=== PATIENT | male | born 1950 | race African-American/Black ===

== ENCOUNTER 2016-10-08 08:28 | Emergency (ER) | payer OTHER ==
--- NOTE | 2016-10-08 09:14 | ED EKG INTERP ---
EKG Interpretation - EKG Time of EKG reading by physician:: 08:40 EKG Read and Signed by:: Zeeshan Saenz EKG Interpretation (*Must complete 3 of following elements*): Abnormal Rate: 69 Rhythm: normal sinus rhythm with sinus arrhythmia Comments: voltage criteria for left ventricular hypertrophy Attestation - Scribe Verification/Attestation Scribe:: Cait Chavez Acting as Scribe for:: Zeeshan Saenz Scribe documention review:: This chart was documented by a scribe and accurately reflects the service the provider performed and the decisions made by the provider.
--- NOTE | 2016-10-08 09:15 | EKG Report ---
Test Performed on : 10/08/2016 08:40:57 AM Test Reason : cp/anxiety Blood Pressure : / mmHG Vent. Rate : 069 BPM Atrial Rate : 069 BPM P-R Int : 142 ms QRS Dur : 082 ms QT Int : 400 ms P-R-T Axes : 076 055 -21 degrees QTc Int : 428 ms Normal sinus rhythm. with sinus arrhythmia. Voltage criteria for left ventricular hypertrophy T wave abnormality, consider inferior ischemia Abnormal ECG When compared with ECG of 05-FEB-2015 00:12, T wave inversion now evident in Inferior leads Unconfirmed Result
--- NOTE | 2016-10-08 10:18 | PROVIDER DOCUMENTATION ---
HPI-General Adult - General Source: patient - History of Present Illness -Gen Adult Nature of Presenting Problems: Pt is 66 y/o M presents to the ED with anxiety. Pt states he feels like he is going to have a panic attack. Pt states was at work and started feeling hot and felt faint. Pt denies syncope or LOC. Pt states just feeling tired all the time. Pt states recently talking to about and it has him stressed. Location of Pain/Injury: reports: generalized Pain Radiation: reports: no radiation Quality of Pain: reports: aching Severity: reports: mild Onset/Duration: reports: unsure Timing: reports: still present, intermittent Context/Activities at Onset: reports: light activity Modifying Factors: improves with: nothing Associated Symptoms: reports: anxiety. denies: arm pain, back/neck pain, chest pain, constipation, cough, diaphoresis, diarrhea, dizziness, EENT symptoms, fatigue, fever/chills, genitourinary problems, headaches, heartburn, joint pain , loss of appetite, malaise, muscle aches, sinus congestion/drainage, nausea, rash, seizure, shortness of breath, sensory/motor loss, pain with inspiration, swelling/mass in abdomen, syncope, vomiting, weakness, trouble walking Similar Symptoms Previously?: Yes Recently seen or treated by another doctor?: No <Cait Chavez - Last Filed: 10/08/16 11:27> <Zeeshan Saenz - Last Filed: 10/08/16 11:37> - General Chief Complaint: Anxiety Stated Complaint: ANXIETY/CHEST PAIN Time Seen by Provider: 10/08/16 10:10 Allergies/Adverse Reactions: Patient Allergies Allergy/AdvReac Type Severity Reaction Status Date / Time acetaminophen [From Lortab] Allergy ITCHING Verified 02/26/16 18:18 hydrocodone bitartrate * Allergy ITCHING Verified 02/26/16 18:18 [From Lortab] morphine Allergy DIZZINESS Verified 02/26/16 18:18 Home Medications: Home Medication List Medication Instructions Recorded Confirmed Last Taken Type Methocarbamol [Robaxin-750] 750 mg PO TID PRN PRN #30 tablet 08/07/15 02/26/16 Rx Orphenadrine [Norflex] 100 mg PO BID PRN #20 tablet 02/26/16 Unknown Rx Oxycodone/APAP 5 mg/325 mg 1 each PO Q4H PRN PRN #10 tablet 02/26/16 Unknown Rx [Percocet-5] Escitalopram [Lexapro] 10 mg PO DAILY #30 tablet 10/08/16 Unknown Rx Review of Systems - Adult - REVIEW OF SYSTEMS - ADULT Constitutional: denies: chills, fever Eyes: denies: blurred vision, double vision Ears, Nose, Mouth & Throat: denies: ear pain, nose pain, throat pain Cardiovascular: denies: chest pain, heart murmur, irregular heart rate Respiratory: denies: cough, shortness of breath, wheezing Gastrointestinal: denies: abdominal pain, diarrhea, nausea, vomiting Genitourinary: denies: dysuria, hematuria Musculoskeletal: denies: bone pain, joint pain, neck pain Integumentary: denies: hives, itching Neurological: denies: dizziness/vertigo, headache/migraines Psychiatric: reports: anxiety. denies: depression, suicidal thoughts Endocrine: reports: no symptoms reported Hematologic/Lymphatic: reports: no symptoms reported Allergic/Immunologic: reports: no symptoms reported All Other Systems: Reviewed and Negative <Cait Chavez - Last Filed: 10/08/16 11:27> Past History - Adult - PAST MEDICAL HISTORY-ADULT Review of Records: reports: Nursing Assessment Review, Medications Reviewed, Social history reviewed & non-contributory. Major Childhood Illnesses: reports: denies history Cardiovascular: reports: HTN, hyperlipidemia, [place] (With stint placement) Respiratory: reports: denies history Gastrointestinal: reports: denies history Obstetrical/Gynecological: reports: denies history Genitourinary: reports: denies history, erectile dysfunction Musculoskeletal: reports: denies history Neurological: reports: CVA Endocrine/Immune: reports: denies history Other Conditions: reports: denies history - PRIOR SURGERIES/PROCEDURES Surgical/Procedure History: reports: cholecystectomy, cardiac stent, orthopedic (extremity) (bilateral shoulder ), other (Hemorroids and Bilat shoulder) - PRIOR HOSPITALIZATIONS Prior Hospitalizations: reports: none - IMMUNIZATION STATUS Childhood Immunizations: See Nurse Assessment Flu Vaccine: See Nurse Assessment - FAMILY HISTORY Family History: reviewed, not pertinent - SOCIAL HISTORY Smoking: denies Substance Use: denies Living Situation: family <Cait Chavez - Last Filed: 10/08/16 11:27> Physical Exam-General - PHYSICAL EXAM-ADULT Initial Vital Signs Reviewed: Yes - CONSTITUTIONAL General Appearance: appears well, alert, no apparent distress, anxious - EYES Eyes: PERRL/EOMI, pink conjunctivae, fundi clear, no AV nicking - HEAD, EARS, NOSE, MOUTH & THROAT HENMT: normocephalic/atraumatic, moist mucous membranes, normal ENT inspection, TMs normal, pharynx normal - NECK Neck: non-tender, full range of motion, supple, normal inspection - RESPIRATORY Respiratory: chest non-tender, lungs clear, normal breath sounds, no pleuratic chest pain, no respiratory distress, no accessory muscle use - CARDIOVASCULAR Cardiovascular: normal peripheral pulses, regular rate, rhythm, no edema, no gallop, no JVD, no murmur - GASTROINTESTINAL (ABDOMEN) Abdominal Exam: normal bowel sounds, non tender, soft, no organomegaly, no pulsatile mass - LYMPHATIC Lymphatic: no adenopathy - MUSCULOSKELETAL Back Exam: normal inspection, no CVA tenderness, no vertebral tenderness Extremity: normal range of motion, non-tender, normal gait, normal inspection - SKIN Integumentary: normal color, normal turgor, warm/dry - NEUROLOGIC Neurologic: therapeutic radiologist II-XII nml as tested, grossly normal, no motor/sensory deficits - PSYCHIATRIC Psych/Mental Status: normal mood/affect, normal thought content, normal thought process, oriented x 3 <Cait Chavez - Last Filed: 10/08/16 11:27> Progress - PLAN OF CARE/RESULTS Progress/Plan/Lab Results: Orders Category Date Time Status EKG [EKG] Stat Ther 10/08/16 08:42 Draft Vital Signs - 24 hr 10/08/16 08:35 Temperature 98.4 F Pulse Rate 84 Respiratory 18 Rate Blood Pressure 133/84 O2 Sat by Pulse 97 Oximetry <Cait Chavez - Last Filed: 10/08/16 11:27> Departure <Cait Chavez - Last Filed: 10/08/16 11:27> - Departure Time of Disposition Order: 11:36 Certified Medical Emergency: Emergent <Zeeshan Saenz - Last Filed: 10/08/16 11:37> - Departure DIAGNOSIS: Depression (emotion) Qualifiers: Depression Type: reactive depression Qualified Code(s): F32.9 - Major depressive disorder, single episode, unspecified Disposition: HOME 01 Condition: Stable Additional Instructions: ED Follow Up Instructions: You have been treated by a care provider in the Emergency Department. These instructions are being provided to you so you can have an understanding of how to care for yourself upon discharge. Upon discharge from the Emergency Department, you are responsible for making arrangements for follow-up care by a physician of your choice. Take all prescribed medications as directed. Return to the Emergency Department immediately for any new or worsening symptoms. You may call the Physician Referral phone number at [phone] to obtain a list of Physicians who are taking new patients. Prescriptions: Escitalopram [Lexapro] 10 mg PO DAILY #30 tablet Referrals: Zeeshan Saenz MD [Primary Care Provider] - Attestation - Scribe Verification/Attestation Scribe:: Cait Chavez Acting as Scribe for:: Zeeshan Saenz Scribe documention review:: This chart was documented by a scribe and accurately reflects the service the provider performed and the decisions made by the provider. <Cait Chavez - Last Filed: 10/08/16 11:27> Physician Attestation
[2016-10-08 11:54] VITALS: BP 133/88
== END 2016-10-08 12:40 | disposition home or self-care (01) ==
LOC: P.ED 08:28
DX: F32.9 Major depressive disorder, single episode, unspecified (principal); I10 Essential (primary) hypertension; E78.5 Hyperlipidemia, unspecified; R94.31 Abnormal electrocardiogram [ECG] [EKG]; I25.2 Old myocardial infarction; Z86.73 Personal history of transient ischemic attack (TIA), and cerebral infarction without residual deficits; Z95.5 Presence of coronary angioplasty implant and graft
CPT/HCPCS: 93005; 99282

== ENCOUNTER 2019-05-07 03:00 | Inpatient (IN) ==
--- NOTE | 2019-04-30 08:33 | EKG Report ---
Test Performed on : 04/30/2019 08:24:21 AM Test Reason : PAT Blood Pressure : / mmHG Vent. Rate : 067 BPM Atrial Rate : 067 BPM P-R Int : 152 ms QRS Dur : 084 ms QT Int : 374 ms P-R-T Axes : 064 019 -12 degrees QTc Int : 395 ms Normal sinus rhythm. with sinus arrhythmia. Minimal voltage criteria for LVH, may be normal variant Abnormal ECG When compared with ECG of 02-NOV-2016 04:54, Nonspecific T wave abnormality now evident in Anterolateral leads Confirmed by Fifi ASHLEY, Aaron Hobbs ([id number]) on 05/01/2019 8:19:14 PM
[2019-04-30 09:19] LABS: URINE SOURCE CLEAN CATCH
[2019-04-30 09:29] LABS: BASO# 0.01 X1000 (0.0-0.2); BASO% 0.2 % (0.0-0.8); EOS# 0.05 X1000 (0.0-0.7); HEMOGLOBIN 12.5 g/dL (14.0-18.0); IMM GRAN# 0.02 X1000 (0.0-0.04); IMM GRAN% 0.4 % (0.0-0.5); LYMPH# 1.67 X1000 (1.2-3.4); LYMPH% 34.9 % (20.5-51.1); MCH 28.2 PG (27-31); MCHC 32.1 g/dL (33-37); MONO# 0.43 X1000 (0.11-0.59); MPV 10.8 FL (7.4-10.4); NEUT# 2.61 X1000 (1.4-6.5); NEUT% 54.5 % (42.2-75.2); PLT 188 X1000 (130-400); RBC 4.43 XMIL (4.7-6.1); RDW 12.5 % (11.5-14.5); WBC 4.79 X1000 (4.8-10.8)
[2019-04-30 09:30] LABS: BILIRUBIN URINE NEGATIVE (NEGATIVE); BLOOD URINE NEGATIVE (NEGATIVE); COLOR YELLOW; GLUCOSE URINE NEGATIVE (NEGATIVE); KETONE URINE NEGATIVE (NEGATIVE); LEUKOCYTES URINE NEGATIVE (NEGATIVE); NITRITE URINE NEGATIVE (NEGATIVE); PH URINE 6.5; PROTEIN URINE NEGATIVE (NEGATIVE); SP GRAVITY URINE 1.021; TURBIDITY URINE CLEAR (CLEAR); UROBILINOGEN URINE 3 mg/dL (NORMAL)
[2019-04-30 09:31] LABS: UR EPITHELIAL CELLS <10 /HPF (<10); URINE BACTERIA NEGATIVE /HPF; URINE RBC <10 /HPF (<10); URINE WBC <10 /HPF (<10)
[2019-04-30 09:54] LABS: INR 1.04; PROTIME 13.7 Seconds (11.0-16.0)
[2019-04-30 09:55] LABS: HEMOGLOBIN A1C 5.1 % (4.8-6.0); PTT 25.7 Seconds (22.3-41.8)
[2019-04-30 10:09] LABS: AGAP 12; BUN 17 mg/dL (8-22); CALCIUM 9.1 mg/dL (8.8-10.2); CHLORIDE 105 mmol/L (98-107); COSMO 284; CREATININE 1.3 mg/dL (0.7-1.2); ESTIMATED GFR > 60; GLUCOSE 88 mg/dL (70-104); POTASSIUM 4.1 mmol/L (3.5-5.1); SODIUM 142 mmol/L (136-145); TCO2 25 mmol/L (25-35)
[2019-05-07] MEDS ORDERED: COLACE ONE (09:18)
[2019-05-07] MEDS ORDERED: REGLAN ONE (09:18)
[2019-05-07] MEDS ORDERED: PEPCID ONE (09:18)
[2019-05-07] MEDS ORDERED: CELEBREX ONE (09:19)
[2019-05-07] MEDS ORDERED: LR 1,000 ML ONE (09:19)
[2019-05-07] MEDS ORDERED: LYRICA ONE (09:19)
[2019-05-07] MEDS ORDERED: KEFZOL 1 GM/D5W 2 GM/100 ML IVPB ONE (09:19)
[2019-05-07] MEDS ORDERED: NORCURON ONE (09:22)
[2019-05-07] MEDS ORDERED: QUELICIN (DOSE) ONE (09:22)
[2019-05-07] MEDS ORDERED: SODIUM CHLORIDE 0.9% 10 ML ONE (09:22)
[2019-05-07] MEDS ORDERED: XYLOCAINE-MPF 2% ONE (09:23)
[2019-05-07] MEDS ORDERED: FENTANYL ONE (09:25)
[2019-05-07] MEDS ORDERED: DIPRIVAN 1% ONE (09:25)
[2019-05-07] MEDS ORDERED: DURAMORPH ONE (10:50)
[2019-05-07] MEDS ORDERED: TORADOL ONE (10:50)
[2019-05-07] MEDS ORDERED: SODIUM CHLORIDE 0.9% ONE (10:51)
[2019-05-07] MEDS ORDERED: SENSORCAINE 0.25%/EPI 1:200,000 ONE (10:51)
[2019-05-07] MEDS ORDERED: CYKLOKAPRON 1,000 MG/NS 1,000 MG/100 ML IVPB ONE (10:51)
[2019-05-07] MEDS ORDERED: EXPAREL 1.3% ONE (10:51)
[2019-05-07] MEDS ORDERED: VALIUM ONE (11:03)
[2019-05-07] MEDS ORDERED: NEO-SYNEPHRINE ONE ×2 (11:29)
[2019-05-07] MEDS ORDERED: ROBINUL ONE ×2 (11:46)
[2019-05-07] MEDS ORDERED: LABETALOL (DOSE) ONE (12:05)
[2019-05-07 12:09] LABS: URINE SOURCE CATH
[2019-05-07 12:13] LABS: BILIRUBIN URINE NEGATIVE (NEGATIVE); BLOOD URINE NEGATIVE (NEGATIVE); COLOR YELLOW; GLUCOSE URINE NEGATIVE (NEGATIVE); KETONE URINE NEGATIVE (NEGATIVE); LEUKOCYTES URINE NEGATIVE (NEGATIVE); NITRITE URINE NEGATIVE (NEGATIVE); PH URINE 6.5; PROTEIN URINE NEGATIVE (NEGATIVE); SP GRAVITY URINE 1.018; TURBIDITY URINE CLEAR (CLEAR); UR EPITHELIAL CELLS <10 /HPF (<10); URINE BACTERIA NEGATIVE /HPF; URINE RBC <10 /HPF (<10); URINE WBC <10 /HPF (<10); UROBILINOGEN URINE NORMAL (NORMAL)
[2019-05-07] MEDS ORDERED: NS 1,000 ML ONE (13:25)
[2019-05-07] MEDS: DILAUDID ONE ×3 (13:25→23:46)
[2019-05-07] MEDS: OXY IR ONE ×2 (13:59→23:46)
--- NOTE | 2019-05-07 14:04 | Diag Imaging Result Doc PS360 ---
SHOULDER 1 VIEW LEFT - 05/07/2019 INDICATION: L TSA TECHNIQUE: COMPARISON: None FINDINGS: There has been left total shoulder arthroplasty. Alignment is anatomic. No hardware fracture or loosening. IMPRESSION: No complication. Electronically signed by Josue Tai 05/07/2019 2:01 PM
[2019-05-07] MEDS ORDERED: DECADRON ONE (14:29)
[2019-05-07] MEDS ORDERED: OFIRMEV 1000 MG/ISOTONIC SOLN 1,000 MG/100 ML BOTTLE ONE (14:29)
[2019-05-07] MEDS ORDERED: SALINE LOCK IV FLUID XX ONE (15:21)
[2019-05-07] MEDS ORDERED: MORPHINE IV PRN ×3 (15:30)
[2019-05-07] MEDS: NS 1,000 ML IV SCH (15:30)
[2019-05-07] MEDS ORDERED: DILAUDID IV PRN ×3 (16:39→16:45)
[2019-05-07] MEDS ORDERED: ROBAXIN PO PRN (17:01)
[2019-05-07] MEDS ORDERED: CYKLOKAPRON 1,000 MG in NS 100 ML IV ONE (17:30)
[2019-05-07] MEDS: OXY IR PO PRN ×2 (17:34→22:44)
[2019-05-07] MEDS: KEFZOL 2 GM/D5W 2 GM/50 ML IVPB IV SCH (20:12)
[2019-05-07] MEDS: COLACE PO SCH (20:17)
[2019-05-07] MEDS: ZANAFLEX PO SCH (20:17)
[2019-05-07] MEDS: BENADRYL PO PRN (22:42)
--- NOTE | 2019-05-07 22:44 | OPERATIVE NOTE ---
PROCEDURE DATE: 05/07/2019 PREOPERATIVE DIAGNOSIS: Left glenohumeral arthritis with recurrent chronic rotator cuff tear. POSTOPERATIVE DIAGNOSIS: Left glenohumeral arthritis with recurrent chronic rotator cuff tear. PROCEDURES: Left reverse shoulder arthroplasty with DePuy Delta Xtend size 12 Press-fit stem, 42 + 3 humeral cup, a 42 +2 mm lateralized eccentric Glenosphere and a standard metaglene. SURGEON: Shant Issa MD BUSINESS QUALITY ASSURANCE ANALYST: RUBY Adames who is necessary for proper positioning, retraction and manipulation of the extremity during the case. SECOND CHIEF CREDIT OFFICER: RUBY Gifford and Junior Reveles RN. ANESTHESIA: General. INTRAVENOUS FLUIDS: 1500 mL of lactated Ringer's. ESTIMATED BLOOD LOSS: 150 mL. COMPLICATIONS: None. INDICATION: The patient is a 69-year-old male who has chronic history of worsening pain and discomfort in his left shoulder. He has undergone previous open rotator cuff repair. He has had some worsening symptoms which have progressed to affect his activities of daily living. Given the patient's continued pain and discomfort, recommendations to proceed with left reverse shoulder arthroplasty was offered. Risks and benefits of surgery were explained, including the risks of anesthesia, , bleeding, infection, failure to relieve pain, postoperative stiffness, nerve injury, blood clots, and other imponderables. All questions were answered, and patient and family wished to proceed with surgery. DETAILS OF OPERATION: The patient was taken to the operating room and placed supine on the operating table. Once adequate anesthesia was obtained, patient was placed in semi-[place]- chair position. The left shoulder was subsequently prepped and draped in usual sterile fashion. A standard deltopectoral incision was made with a skin knife. Hemostasis was obtained using electrocautery. The deltopectoral interval was then developed. Retractors were then placed. The clavipectoral fascia was elevated as well. Stay sutures were then placed in the subscapularis tendon, and it was released approximately 1 cm anterior to medial insertion. After this had been performed, the head was then dislocated anteriorly. The starting reamer was then passed. The intramedullary canal was followed by sequential reaming up to a size 12. The proximal humeral cutting block was then pinned in position approximately 15 degrees of retroversion. The humeral head was then resected. Attention was then turned to the glenoid where circumferential dissection was performed with a deep knife. A guide was placed in position, and guide pin was then placed. Reaming was then conducted. Central hole was then dilated. The wound was copiously irrigated with pulsatile lavage. A standard metaglene was then impacted in position. Three locking screws and 1 nonlocking screw was placed. It had good fixation. The wound was copiously once again. A 42 +2 mm lateralize eccentric Glenosphere was then placed with the eccentricity placed inferiorly. Attention was then turned to the proximal humerus where intramedullary guide was placed in position. The proximal humerus was reamed. Intramedullary canal was copiously irrigated. A size 12 Delta Xtend press-fit humeral stem was then impacted and had good fit. Trial cup was performed + 3 and had excellent stability and range of motion. The trial cup was removed. The wound was copiously irrigated once again. A 42 +3 humeral cup was then placed. The shoulder was reduced, carried through range of motion. It had excellent stability and range of motion. Exparel was placed deep to the soft tissue as well as subcutaneous tissue. The wound was copiously irrigated once again. A #2 FiberWire was then used to repair the subscapularis tendon. The wound was copiously irrigated once again. 2-0 Vicryl was then used to close subcutaneous tissue followed by running 2-0 Prolene. Benzoin and Steri-Strips were applied. Adaptic, sterile 4 x 4, ABD pad, and tape on the left shoulder. The patient tolerated the procedure well with no complications and transferred to the recovery room in stable condition. cc: Shant Issa MD
[2019-05-08] MEDS: PERIDEX MT SCH ×3 (00:59→21:13)
[2019-05-08] MEDS: KEFZOL 2 GM/D5W 2 GM/50 ML IVPB IV SCH (04:31)
[2019-05-08] MEDS: ZANAFLEX PO SCH ×3 (04:32→21:13)
[2019-05-08] MEDS: BENADRYL PO PRN (04:49)
[2019-05-08 09:05] LABS: HEMATOCRIT 34.6 % (42.0-52.0); HEMOGLOBIN 10.5 g/dL (14.0-18.0)
--- NOTE | 2019-05-08 09:39 | Diag Imaging Result Doc PS360 ---
EXAM: CHEST-1 VIEW 05/08/2019 HISTORY: rehab TECHNIQUE: AP portable upright at 0925 COMMENT: There are platelike opacities in both lung bases consistent with atelectasis. The inspiration is less optimal than on 11/02/2016. There has been a total shoulder arthroplasty on the left since the previous study. IMPRESSION: Bibasilar atelectasis. Electronically signed by Brent Judd 05/08/2019 9:36 AM
[2019-05-08] MEDS: COLACE PO SCH ×2 (09:43→21:13)
[2019-05-08] MEDS: OXY IR PO PRN ×3 (09:43→19:25)
[2019-05-08] MEDS: LEXAPRO PO SCH (09:43)
[2019-05-08 09:52] LABS: CALCIUM 8.3 mg/dL (8.8-10.2)
[2019-05-08] MEDS ORDERED: KAYEXALATE PO ONE (10:12)
[2019-05-08] MEDS ORDERED: TUMS PO ONE (12:05)
[2019-05-08] MEDS: ZOFRAN PO PRN (12:10)
--- NOTE | 2019-05-08 12:57 | ORTHOPAEDICS PROGRESS NOTE ---
DATE: 05/08/2019 SUBJECTIVE: The patient is a pleasant, 69-year-old male who is 1 day status post left reverse total shoulder arthroplasty. He is currently resting comfortably. OBJECTIVE: On physical examination, the patient's left upper extremity dressing is intact. Able to flex all his fingers. Good capillary refill distally.Vital signs: Stable. Labs are pending. IMPRESSION: Postoperative day #1 status post left reverse total shoulder arthroplasty. PLAN: At this point, change his dressing, and begin mobilization physical therapy. Cpr Ambulance Driver have been consulted for discharge planning. cc: Shant Issa MD
[2019-05-08] MEDS ORDERED: NS 1,000 ML IV ONE (17:30)
[2019-05-08] MEDS: NS 1,000 ML IV SCH ×2 (18:20→21:11)
[2019-05-09] MEDS: NS 1,000 ML IV SCH ×4 (00:13→18:05)
[2019-05-09] MEDS: ZANAFLEX PO SCH ×3 (06:07→22:49)
[2019-05-09] MEDS: OXY IR PO PRN ×3 (06:09→23:17)
[2019-05-09 07:17] LABS: HEMATOCRIT 32.6 % (42.0-52.0); HEMOGLOBIN 10.9 g/dL (14.0-18.0)
[2019-05-09 08:05] LABS: AGAP 10; BUN 20 mg/dL (8-22); CALCIUM 8.7 mg/dL (8.8-10.2); CHLORIDE 100 mmol/L (98-107); COSMO 276; CREATININE 1.3 mg/dL (0.7-1.2); ESTIMATED GFR > 60; GLUCOSE 124 mg/dL (70-104); POTASSIUM 4.4 mmol/L (3.5-5.1); SODIUM 136 mmol/L (136-145); TCO2 26 mmol/L (25-35)
[2019-05-09] MEDS ORDERED: SALINE LOCK IV FLUID XX ONE (09:34)
[2019-05-09] MEDS: LEXAPRO PO SCH (10:29)
[2019-05-09] MEDS: BENADRYL PO PRN (10:29)
[2019-05-09] MEDS: COLACE PO SCH ×2 (10:31→22:48)
[2019-05-09] MEDS: PERIDEX MT SCH ×2 (10:31→22:47)
--- NOTE | 2019-05-09 11:39 | ORTHOPAEDICS PROGRESS NOTE ---
DATE: 05/09/2019 SUBJECTIVE: The patient is a 69-year-old male who is 2 days status post left reverse total shoulder arthroplasty. The patient is experiencing expected postoperative discomfort. He is resting comfortably. His pain seems to be better this morning. PHYSICAL EXAMINATION: His left upper extremity wound looks good. There is no signs or symptoms of infection. Able to flex all his fingers. Good capillary refill distally. 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 DIAGNOSTIC DATA: Labs pending for this morning. H H yesterday was 10.5 and hematocrit 34.6. His potassium was 6.0 and was treated with Kayexalate and normalized to 4.3 yesterday afternoon. His creatinine was 2.0 which increased from 1.3 preop. IMPRESSION: Postoperative day #2 status post left reverse total shoulder arthroplasty. PLAN: At this point, the patient was given a bolus of fluid increased as well as hydration with IV fluids, and his s pending this morning. We will await the results. We are awaiting insurance approval for inpatient rehabilitation. The patient will continue with physical therapy. cc: Shant Issa MD
[2019-05-09] MEDS: ZOFRAN PO PRN (13:49)
[2019-05-09] MEDS: MILK OF MAGNESIA PO PRN (23:45)
[2019-05-10] MEDS: BENADRYL PO PRN ×2 (06:13→13:57)
[2019-05-10 07:19] LABS: HEMATOCRIT 32.4 % (42.0-52.0); HEMOGLOBIN 10.2 g/dL (14.0-18.0)
[2019-05-10] MEDS: ZANAFLEX PO SCH ×3 (07:58→23:35)
[2019-05-10] MEDS: NS 1,000 ML IV SCH ×5 (07:59→23:35)
[2019-05-10] MEDS: COLACE PO SCH ×2 (10:00→21:20)
[2019-05-10] MEDS: OXY IR PO PRN ×2 (10:09→13:55)
[2019-05-10] MEDS: LEXAPRO PO SCH (10:10)
[2019-05-10] MEDS: PERIDEX MT SCH ×2 (10:11→21:20)
[2019-05-10] MEDS: ZOFRAN PO PRN (11:36)
[2019-05-10] MEDS: MILK OF MAGNESIA PO PRN (13:57)
--- NOTE | 2019-05-10 15:01 | ORTHOPAEDICS PROGRESS NOTE ---
DATE: 05/10/2019 SUBJECTIVE: Mark Horner is a 69-year-old male status post left total shoulder arthroplasty by Dr. Issa. He has no complaints today. OBJECTIVE: He is a well-developed, well-nourished male. He is alert, cooperative exam. His incision is clean, dry, intact without sign of infection. His hematocrit is 10. His hemoglobin is 32. ASSESSMENT: Stable left total shoulder arthroplasty. PLAN: He will likely go to rehab the 1st of the week. We will continue his current management. cc: MD Shant Angel MD
[2019-05-11] MEDS: OXY IR PO PRN ×6 (02:18→22:27)
[2019-05-11] MEDS ORDERED: ZANAFLEX PO PRN (08:18)
[2019-05-11] MEDS: ZANAFLEX PO SCH (08:18)
[2019-05-11] MEDS: COLACE PO SCH ×2 (10:59→22:27)
[2019-05-11] MEDS: LEXAPRO PO SCH (11:00)
[2019-05-11] MEDS: ZOFRAN PO PRN (11:00)
[2019-05-11] MEDS: PERIDEX MT SCH ×2 (11:02→22:30)
--- NOTE | 2019-05-11 12:06 | ORTHOPAEDICS PROGRESS NOTE ---
DATE: 05/11/2019 SUBJECTIVE: Mark Horner is a 69-year-old male who is postoperative day 4 from a reverse left total shoulder arthroplasty. He complains of continued pain in his shoulder, as well as constipation. He states that he has not had a bowel movement since he has been in the hospital. OBJECTIVE: General: A well-developed, well-nourished male. He is sitting on the edge of the bed. He is alert and oriented, cooperative with the exam. Extremities: His dressing is clean, dry, intact from his shoulder. His arm is neurovascularly intact. ASSESSMENT: Stable right total shoulder arthroplasty. PLAN: I have ordered magnesium citrate as he has already taken milk of magnesia twice, as well as Colace and prune juice. If the magnesium citrate fails, I have instructed the nurse to try Dulcolax suppository, and if that fails to proceed to a Fleet's enema. He understands the plan. He will likely go to rehab tomorrow. cc: MD Shant Angel MD
[2019-05-11] MEDS ORDERED: DULCOLAX PR PRN (16:33)
[2019-05-11] MEDS ORDERED: FLEET ENEMA PR PRN (16:36)
[2019-05-11] MEDS ORDERED: CITRATE OF MAGNESIA PO ONE (18:30)
[2019-05-11] MEDS: NS 1,000 ML IV SCH ×2 (20:18)
[2019-05-12] MEDS: OXY IR PO PRN ×4 (03:03→14:24)
[2019-05-12] MEDS: MILK OF MAGNESIA PO PRN (03:09)
[2019-05-12] MEDS: NS 1,000 ML IV SCH ×2 (04:13→04:14)
--- NOTE | 2019-05-12 09:14 | ORTHOPAEDICS PROGRESS NOTE ---
DATE: 05/12/2019 SUBJECTIVE: He is a 69-year-old man who is status post day 5 of a left total shoulder arthroplasty. He has been resting comfortably. He did complain of constipation, but this has since resolved after being treated with milk of magnesia and Colace. States that he is doing well at this time, and he has no complaints. He states he is ready to go to rehab, and he has been doing very well with his physical therapy. He states he has been walking around but has not been working on many shoulder exercises. OBJECTIVE: Mr. Horner is resting comfortably in bed and eating his breakfast. He has no complaints at this time. His dressing is intact without any active drainage. There is no surrounding redness to suggest a secondary infection at this time. He does not complain of any pain this morning. He has good range of motion of his wrist and fingers. His hand grasp is strong. His calves are soft. Vital signs: His vital signs have been stable, and he has been afebrile. DIAGNOSTIC DATA: His hemoglobin and hematocrit on 05/10/2019 were 10.2 and 32.4. His creatinine has returned to his baseline of 1.3. ASSESSMENT: Status post left total shoulder arthroplasty, post op day 5. PLAN: I spoke with Case Management this morning, and they state that he is scheduled to go to rehab today if at all possible. Case Management is waiting on a call from them today to make sure that his insurance has been approved. Update: Mr. Horner was accepted at [facility] and was transferred today. Dictated by RUBY Mejia for Shant Issa MD cc: Shant Issa MD [facility]
--- NOTE | 2019-05-12 09:25 | DISCHARGE SUMMARY ---
ADMISSION DATE: 05/07/2019 DISCHARGE DATE: 05/12/2019 ADMITTING DIAGNOSES: 1. Left glenohumeral arthritis with recurrent chronic rotator cuff tear. 2. History of cerebrovascular accident. 3. Coronary artery disease with previous stents. DISCHARGE DIAGNOSES: 1. Left glenohumeral arthritis with recurrent chronic rotator cuff tear. 2. History of cerebrovascular accident. 3. Coronary artery disease with previous stents. 4. Status post left reverse total shoulder arthroplasty. BRIEF HISTORY: The patient is a pleasant, 69-year-old male with a chronic history of pain and discomfort in his left shoulder. The pain and discomfort have progressed to affect his activities of daily living. X-rays reveal findings of significant degenerative glenohumeral arthritis with recurrent rotator cuff tear. Given the patient's longevity of symptoms of pain and discomfort, a recommendation to proceed with left reverse shoulder arthroplasty was offered. Risks and benefits of surgery were explained including the risks of anesthesia, , bleeding, infection, failure to relieve pain, postoperative stiffness, nerve injury, blood clots, and other imponderables. All questions were answered. The patient and family wished with surgery. HOSPITAL COURSE AND TREATMENT: The patient was admitted to the hospital and underwent left reverse shoulder arthroplasty. The patient tolerated the procedure well. By postoperative day #1, he did have some elevation in his preoperative creatinine from 1.3 to 2.0. The patient responded with IV hydration and he return to his preop lab work of creatinine 1.3 by postop day #2. By postop day #3, his hemoglobin and hematocrit stabilized at 10.2 and 32.4. It was felt that he would benefit from inpatient rehabilitation. The patient and family are agreeable to this. Prior to discharge, the patient is afebrile, tolerating a regular diet. His vital signs are stable. His wound looked good. There were no signs or symptoms of infection. DISCHARGE MEDICATIONS: 1. OxyIR 5 to 10 mg p.o. q.4 hours p.r.n. pain. 2. For remaining medications, please see medication list. DISCHARGE INSTRUCTIONS: 1. The patient will be discharged for inpatient rehabilitation. 2. Consult physical therapy for passive range of motion exercises for the left shoulder. The patient may be active range of motion with the elbow, wrist, and fingers. With regards to the shoulder, passive forward flexion, external rotation up to 20 degrees. 3. Discontinue sutures on 05/19/2019. 4. Follow up in the office in 3 to 4 weeks. cc: Shant Issa MD
[2019-05-12] MEDS: PERIDEX MT SCH (10:58)
[2019-05-12] MEDS: COLACE PO SCH (10:58)
[2019-05-12] MEDS: LEXAPRO PO SCH (10:58)
[2019-05-12 11:09] VITALS: BP 133/87
== END 2019-05-12 16:03 | DRG 483 ==
LOC: SURHOLD 03:00 → 4N 12:04
PROVIDERS: ADMIT Orthopaedic Surgery Adult Reconstructive Orthopaedic Surgery; ATTEND Orthopaedic Surgery Adult Reconstructive Orthopaedic Surgery